=== PATIENT | male | born 1960 | race Caucasian/White ===

== ENCOUNTER → 2018-07-15 | Outpatient (CLI) | payer SELFPAY ==
[2018-07-09 11:03] VITALS: BP 142/94
[~2018-07-15] MED LIST: AMOX1TAB61 PO; DOXY100C2 PO; LACT20SO PO; SPIR25TA PO
== END | disposition home or self-care (01) ==
LOC: PMGWOUND 12:01
PROVIDERS: ATTEND Preventive Medicine Undersea and Hyperbaric Medicine
DX: I87.312 Chronic venous hypertension (idiopathic) with ulcer of left lower extremity (principal); L97.821 Non-pressure chronic ulcer of other part of left lower leg limited to breakdown of skin; I12.0 Hypertensive chronic kidney disease with stage 5 chronic kidney disease or end stage renal disease; N18.6 End stage renal disease; K70.40 Alcoholic hepatic failure without coma
CPT/HCPCS: 99214; G0463